=== PATIENT | female | born 1950 ===

== ENCOUNTER 2017-02-28 09:15 | Day surgery (SDC) | payer MEDICARE ==
[2017-02-07 08:48] VITALS: BMI 27.0
[2017-02-28] MEDS ORDERED: Lactated Ringer's 1,000 ML IV ONE ×2 (09:59)
[2017-02-28] MEDS ORDERED: Midazolam 2 MG/2 ML VIAL ONE (11:32)
[2017-02-28] MEDS ORDERED: Propofol 10 mg/ml Inj (20 ML) ONE (11:32)
[2017-02-28] MEDS ORDERED: HYDROmorphone 0.5 mg/0.5 ml ISec IVP PRN (11:58)
--- NOTE | 2017-02-28 12:00 | PCM.SURG1 ---
Surgeon's Initial Post Op Note - Surgeon's Notes Surgeon: Dr. Medina Tool And Die Technician: None Type of Anesthesia: General LMA Anesthesia Administered By: Dr. Jacobo Pre-Operative Diagnosis: 66 yo postmenopausal bleeding, Endometrial polyp Operative Findings: AV uterus with endometrial polyp Post-Operative Diagnosis: Same as above Operation Performed: Hysteroscopy Myosure Fractional D and C Specimen/Specimens Removed: Endometrial polyp, ECC,EMC Estimated Blood Loss: EBL {In ML}: 10 Blood Products Given: N/A Drains Used: No Drains Post-Op Condition: Good Date of Surgery/Procedure: 02/28/17 Time of Surgery/Procedure: 11:57
[2017-02-28 14:38] VITALS: BP 131/66; PULSE 75; RESP 16; TEMP 97.3; O2SAT 97
--- NOTE | 2017-02-28 22:55 | OP ---
PROCEDURE DATE: 02/28/2017 PREOPERATIVE DIAGNOSIS: A 66-year-old female with postmenopausal bleeding, endometrial polyp. POSTOPERATIVE DIAGNOSIS: A 66-year-old female with postmenopausal bleeding, endometrial polyp. PROCEDURE: Hysteroscopy, MyoSure, and fractional D and C. SURGEON: Kirsten Medina MD TYPE OF ANESTHESIA: General LMA. ANESTHESIA ADMINISTERED BY: *------* FINDINGS: Anteverted uterus, approximately 10 to 12 weeks, the patient noted to have endometrial polyp and a calcified leiomyoma. COMPLICATIONS: None. ESTIMATED BLOOD LOSS: 10 mL. IN's AND OUT's was 600 mL. URINE OUTPUT: 0 by straight cath. IV fluids 550 and specimen was endometrial polyp, EMC and ECC. DESCRIPTION OF PROCEDURE: The patient was informed of the risk factors, benefits and alternatives of the procedure. Risk factors included infection, bleeding, and damage to the surrounding organs and tissues, complication from anesthesia and possible . After informed consent was obtained, all questions were answered, she was then taken to the operating room, prepped and draped in normal sterile fashion, placed in the dorsal lithotomy position. A weighted speculum was placed in the vagina. The anterior lip of the cervix was grasped with single-tooth tenaculum. The uterus was gently sounded to approximately 10 cm. Upon completing uterine dilation, the scope was then placed. A complete surveillance of the uterine cavity was performed, which demonstrated that she had an endometrial polyp together with a calcified leiomyoma. Under direct visualization, the MyoSure device was then activated in which again the endometrial polyp was removed and submitted to pathology together with a calcified leiomyoma. Under direct visualization, the MyoSure device was then activated in which the endometrial polyp was removed and submitted to pathology together with the calcified leiomyoma. A complete surveillance of the uterine cavity was then performed and then particular ends upon completion of the hysteroscopy and the MyoSure device was then removed and a fractional D and C was performed. EMC and ECC was submitted to pathology, excellent hemostasis . The scope was then reintroduced making sure there was no areas of perforation. Upon completion, all instruments were removed from the vagina. Instrument and lap counts were correct x2. The patient was then taken to the recovery room in stable condition and instructed to follow up in the office in approximately 2 weeks. Kirsten Medina MD [facility] # [id number]
== END 2017-02-28 14:44 | disposition home or self-care (01) ==
LOC: C.SDS 09:15
PROVIDERS: ATTEND Obstetrics & Gynecology
DX: N84.0 Polyp of corpus uteri (principal); N95.0 Postmenopausal bleeding
CPT/HCPCS: 58558; 88305; J2250; J2704; J3010; J7120

== ENCOUNTER 2018-01-02 07:01 | Day surgery (SDC) | payer MEDICARE ==
[2018-01-02 08:01] VITALS: TEMP 97.8
--- NOTE | 2018-01-02 08:31 | CP.SDSHP ---
Same Day Surgery H & P - History Proposed Procedure: EGD Pre-Op Diagnosis: Dyspepsia, hiatal hernia, submucosal lesion of esophagus - Previous Medical/Surgical History Cardiac: Hypertension Pulmonary: Asthma Endocrine/Metabolic: Thyroid Disease Previous Surgical History: Hyesterectomy, left mastectomy and brest reconstuction, thyorid biopsy - Allergies Allergies: Allergies No Known Allergies Allergy (Unverified 01/02/18 07:41) - Current Medications Current Medications: see reconciliation sheet - Physical Exam General Appearance: WD WN female in NAD Vital Signs: Vital Signs 01/02/18 07:25 Temperature 97.8 F Pulse Rate 66 Respiratory 19 Rate Blood Pressure 147/78 O2 Sat by Pulse 98 Oximetry Mental Status: Alert & Oriented x3 Neuro: WNL Heart: WNL Lungs: WNL GI: WNL - {Optional Preform as Required} Abdomen: WNL - Impression Impression: Dyspepsia, hiatal hernia, submucosal lesion of esophagus Pt. Evaluated Today:Candidate for Anesthesia & Procedure: Yes - Date & Time Date: 01/02/18 Time: 08:31 Short Stay Discharge - Short Stay Discharge Admitting Diagnosis/Reason for Visit: GASTRO REFLUX Disposition: HOME/ ROUTINE
[2018-01-02] MEDS ORDERED: Lactated Ringer's 1,000 ML IV ONE (09:02)
[2018-01-02] MEDS ORDERED: Propofol 10 mg/ml Inj (20 ML) ONE (09:04)
[2018-01-02] MEDS ORDERED: Lidocaine Hydrochloride 5 ML INJ ONE (09:18)
[2018-01-02 10:16] VITALS: O2SAT 98
[2018-01-02 10:19] VITALS: BP 122/68; PULSE 59; RESP 14
== END 2018-01-02 10:45 | disposition home or self-care (01) ==
LOC: C.ENDO 07:01
PROVIDERS: ATTEND Internal Medicine Gastroenterology
DX: K29.50 Unspecified chronic gastritis without bleeding (principal); K44.9 Diaphragmatic hernia without obstruction or gangrene; K21.9 Gastro-esophageal reflux disease without esophagitis; I10 Essential (primary) hypertension; E78.5 Hyperlipidemia, unspecified; J45.909 Unspecified asthma, uncomplicated; Z90.12 Acquired absence of left breast and nipple
CPT/HCPCS: 43239; 88305; 88312; 88313; 88342; J2001; J2704; J7120